=== PATIENT | female | born 1985 | race African-American/Black ===

== ENCOUNTER 2017-12-25 12:43 | Inpatient (IN) | payer OTHER ==
[~2017-12-25] VITALS: Ht 142.2 cm; Wt 70.8 kg
[2017-12-25] VITALS (20 sets, daily range): BP systolic 124–156; BP diastolic 80–111
--- NOTE | ~2017-12-25 | HC ---
[facility] [place] [address] CONSULTATION Name: SHIRLENE CORRIGAN Room #: 240-P ADM IN M.R.#: [id number] Admission: 12/25/17 Attend Phys: Nakul Hernandez MD Discharge: Date of : 89 Report #: [id number] THIS REPORT FOR: //name// CC: Nakul John REFERRING PHYSICIAN: Dr. Hernandez. REASON FOR REFERRAL: Pneumonia. HISTORY OF PRESENT ILLNESS: The patient is a 32-year-old female who was transferred to the [facility] from [place] for [id number] respiratory failure and pneumonia. A pulmonary consultation is requested. The patient has severe cerebral palsy and has a chronic tracheostomy. She is not on a ventilator chronically. She is on trach shield. She was last hospitalized in 09/2017. The patient has known severe cerebral palsy with upper airway obstruction. As a result, she had a chronic tracheostomy tube placed in 2011. She has done fairly well up until recently. On the day of admission, the patient was noted to be more hypoxic, short of breath, low saturation was said to be in 60% noted by the caregiver. She was then taken by ambulance to [facility]. Chest x-ray revealed increasing infiltrates. She was transferred to [facility]. The patient is nonverbal. PAST MEDICAL HISTORY: As mentioned above, severe cerebral palsy, chronic respiratory failure due to upper airway obstruction, status post chronic tracheostomy, chronic dysphagia, status post PEG tube placement, history of multiple infections including MRSA, Stenotrophomonas respiratory tract infection, history of seizure disorder, asthma, history of meningitis. 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 MEDICATIONS: From her senior care include doxycycline, prednisone, clorazepate, valproic acid, Cardizem, Flonase, insulin supplements, Lasix, nebulized budesonide 0.5 mg b.i.d., Colace, Depo-Provera, glucagon, nystatin, nebulized Perforomist 20 mcg b.i.d., ____, prednisone 5 mg once a day, lansoprazole, Prevacid, guaifenesin, Xopenex nebulized q. 4 hours. FAMILY HISTORY: Noncontributory. SOCIAL HISTORY: She lives in a senior care with her adoptive parents. She has a [address] [place] [address] CONSULTATION Name: SHIRLENE CORRIGAN Room #: 240-[facility] IN ..#: [id number] Admission: 12/25/17 Attend Phys: Nakul Hernandez MD Discharge: Date of : 89 Report #: [id number] sister with similar problems. MEDICAL DIRECTIVE: She is a full code blue. REVIEW OF SYSTEMS: Deferred as the patient is unable to communicate. PHYSICAL EXAMINATION: GENERAL: She is awake, appears to be mildly dyspneic. VITAL SIGNS: Temperature is 98 degrees Fahrenheit, pulse is 120, respiratory rate is 20, blood pressure 135/89 mmHg, saturation 98%. HEENT: Normocephalic, atraumatic. NECK: Status post tracheostomy. CHEST: Breath sounds are decreased due to poor effort. Coarse breath sounds bilaterally with rales. No wheezes. CARDIOVASCULAR: Heart sounds are distant. No obvious murmurs or gallop. Pulses are 2+/4+ bilaterally. BREASTS: Exam deferred. ABDOMEN: Soft. No obvious masses felt. PEG tube is noted in the upper abdominal area. GENITOURINARY: Deferred. RECTAL: Deferred. EXTREMITIES: No cyanosis or clubbing. MUSCULOSKELETAL: She is in a position with marked muscle atrophy. LABORATORY DATA: Portable chest x-ray shows rotated film, infiltrate in the left side, mild infiltrate in the right lung field. Tracheostomy is noted in the midline. Cardiomegaly is present. Electrolytes: Sodium 141, potassium 3.3, chloride 100, CO2 is 32, BUN is 7, creatinine 0.3. WBC 18,000, hemoglobin 15.7, platelets are normal. Arterial blood gas revealed pH 7.37, pCO2 of 47, pO2 of 69 with FiO2 of 50%. IMPRESSION: 1. Snubs-bl-yuzpprq hypercapnic hypoxic respiratory failure in this 32-year-old white female with severe cerebral palsy, history of upper airway obstruction, status post chronic tracheostomy. Chest x-ray shows increasing infiltrates. Pneumonia is suspected, aspiration is likely. 2. Severe cerebral palsy, progressive weakness and debility. 3. History of upper airway obstruction, status post tracheostomy. 4. History of seizure disorder. 5. History of asthma, on chronic steroids and bronchodilators along with inhaled corticosteroids. 6. Remote history of meningitis. RECOMMENDATIONS: Agree with broad spectrum antibiotics to cover for community-acquired pneumonia as the patient lives in a senior care. Her last [facility] [address] [address] CONSULTATION Name: SHIRLENE CORRIGAN Room #: [facility] IN M.R.#: [id number] Admission: 12/25/17 Attend Phys: Nakul Hernandez MD Discharge: Date of : 89 Report #: [id number] hospitalization was in September of this year. Cultures will be obtained. In terms of the patient's respiratory status, given his severe cerebral palsy, progressive weakness, I would recommend mechanical ventilation to allow her to rest during this infectious period. In the near future, the patient may also benefit from either nocturnal ventilation or 24-hour positive pressure ventilation as her muscular weakness would only progress with time. Because of neurologic condition, she is at risk for recurrent respiratory complications. She has done fairly well up to this past year, her last hospitalization being September of this year. However, with recurrent hospitalization within the past few months, the patient may not be able to maintain adequate pulmonary hygiene. With severe cerebral palsy, overall look appears to be poor. Thank you for this consultation. <ELECTRONICALLY SIGNED> By: Juan Tobias MD 12/27/17 1715 1615 [id number] Juan Tobias MD /nt
--- NOTE | ~2017-12-25 | O ---
[facility] [place] [address] OPERATIVE REPORT Name: SHIRLENE CORRIGAN Room #: 240-P [facility] IN M.R.#: [id number] Admission: 12/25/17 Attend Phys: Nakul Hernandez MD Discharge: Date of : 89 Report #: [id number] THIS REPORT FOR: //name// CC: Nakul John PROCEDURE: THERAPEUTIC bronchoscopy. CLINICAL HISTORY: A 32-year-old female with severe cerebral palsy, now with pneumonia, increased secretion and possible mucus plugging. A diagnostic bronchoscopy was performed. POSTOPERATIVE DIAGNOSES: 1. Moderate mucosal edema. 2. No evidence of mucus plugging. DESCRIPTION OF PROCEDURE: Following obtained consent from the patient's family with risks and benefits being explained to the patient's family including infection, bleeding, pneumothorax, the procedure was performed in the ICU room. A flexible fiberoptic bronchoscope was then introduced through the previously placed tracheostomy. Distal trachea was grossly unremarkable other than moderate mucosal edema that was noted throughout both the airways. Otherwise, the dontae was unremarkable. Left main stem bronchus, left upper lobe and left lower lobe was grossly unremarkable other than the mucosal edema. Right mainstem bronchus, right upper lobe, right middle lobe and right lower lobe was also notable for moderate mucosal edema. The airways were patent without any evidence of mucus plugging. The patient tolerated the procedure well, no complications. Vital signs and saturation throughout the study were within normal range. We did a bronchial wash. The bronchial wash specimen will be sent for microbiologic studies. By: 1639 [id number] Juan Tobias MD /ashish
[~2017-12-25 12:43] MED LIST: ACETAMINOP160 MG/12 PER TUBE; ACETAMINOP160 MG/5 M PER TUBE; ALBUTEROL 0.5ML INH; AMOXICILLIN 50500 MG PO; ATIVAN1 MG PER TUBE; BACTRIM DS TAB1 EACH PO; CALAN PER TUBE; CARDIZEM60 MG PER TUBE; CHILDREN'S325 MG/10. PER TUBE; CIPRO250 M1 PER TUBE; CIPRO250 MG/51 PER TUBE; CLORAZEPATE DI7.5 M3 PER TUBE; COLACE100 MG PO; CONSTULOSE10 GM/152 PER TUBE; DEPAKENE PER TUBE; DEPO-PROVE150 MG/11 IM; DEPO-PROVER150 MG/M1 IM; DIMETAPP COLD PER TUBE; DOCUSATE S50 MG/5 M2 PER TUBE; DOXYCYCLINE HYC50 MG PO; ENOXAPARIN40 MG/0.1 SUBQ; EPIPEN0.3 MG/0.3 SUBQ; FENTANYL 0.50 MCG/ML IV PUSH; FLONASE 0.05%50 MCG NASAL; GLUCAGON EMERGEN1 MG SUBQ; GLUTOSE GEL 1515 G1 PO; GUAIATUSSI100 MG/5 M PER TUBE; HEPARIN LO IV; HYDROCORTISONE IV PUSH; KLOR-CON 1010 MEQ PO; LACTULOSE10 GM/152 PER TUBE; LANTUS SUBQ; LASIX 20 MG TAB20 MG PO; LEVALBUTER1.25 MG/0. INH; MIRALAX17 GM PO; MUPIROCIN22 GM TOP; NEOSPORIN OINTM15 GM; NEOSPORIN OINTM15 GM TOP; NOVOLOG100 UNIT/1 SUBQ; NYAMYC15 GM TOP; PERFOROMIS20 MCG/2 M INH; PERFOROMIST; PERFOROMIST INH; PIPERACIL-TA3.375 G1 IV; POTASSIUM PER TUBE; PREDNISOLON5 MG/5 ML PER TUBE; PREDNISONE 10 M10 MG PO; PREDNISONE 5 MG5 M1 PO; PREVACID 15 MG15 M4 PER TUBE; PREVACID15 MG PER TUBE; PREVACID15 MG PO; PROGESTERO50 MG/1 M4 IM; PROTONIX40 M1 PER TUBE; PULMICORT0.5 MG/21 INH; PULMICORT0.5 MG/22 INH; ROBAFEN100 MG/5 M PER TUBE; SEPTRA SUSPENS100 ML PER TUBE; TEGRETOL100 MG/5 M PER TUBE; TOBI 300 M300 MG/5 M; TRANXENE PER TUBE; VALPROIC A250 MG/51 PER TUBE; VERAPAMIL HCL120 MG PER TUBE; VESICARE10 M1 PER TUBE; XOPENEX0.63 MG/3 INH; ZYVOX PER TUBE; [UNRECOGNIZED DRUG - OTHER]; [UNRECOGNIZED DRUG - OTHER] PER TUBE; colace PER TUBE; depo shot IM
[2017-12-25 14:57] LABS: HEMATOCRIT 46.7 % (37.0-47.0); HEMOGLOBIN 15.7 gm/dL (12.0-15.0); MCH 32.2 pg (26.0-34.0); MCHC 33.7 g/dL (28.0-37.0); MCV 95.5 fL (80.0-100.0); PLATELET COUNT 192 thou/uL (150-400); RBC 4.89 mil/uL (4.20-5.00); RDW 13.8 % (10.5-14.5); WBC 18.2 thou/uL (4.0-11.0)
[2017-12-25 15:04] LABS: CALCIUM 9.2 mg/dL (8.5-10.1); CREATININE 0.4 mg/dL (0.6-1.0); POTASSIUM 3.3 mmol/L (3.5-5.1)
[2017-12-25 15:10] LABS: BE(vivo) 1.5 mmol/L (-2 to +3); HCO3 27.5 mmol/L (22.0-26.0); PCO2 47.8 mmHg (35.0-45.0); PO2 69.5 mmHg (80.0-100.0); pH 7.377 (7.360-7.450); sO2 93.5 % (92.0-98.0)
[2017-12-25] MEDS ORDERED: G TUSSIN AC LI473 ML PER TUBE (15:11)
[2017-12-25] MEDS ORDERED: POTASSIUM40 MEQ/11 PER TUBE (15:14)
[2017-12-25] MEDS ORDERED: KEPPRA 100100 MG/M1 PO (15:15)
[2017-12-25] MEDS ORDERED: NOVOLIN R100 UNIT/1 SUBQ (15:16)
[2017-12-25] MEDS ORDERED: CORTISONE60 GM (15:17)
[2017-12-25] MEDS ORDERED: ACETAMINOP160 MG/5 M (15:19)
[2017-12-25] MEDS ORDERED: MILK OF MA2400 MG/10 (15:20)
[2017-12-25] MEDS ORDERED: EPIPEN0.3 MG/0.1 INJECTION (15:21)
[2017-12-25 15:23] LABS: ABSOLUTE NEUTROPHILS 13.3 thou/uL (1.4-8.2); METAMYELOCYTES 2 %
[2017-12-26] VITALS (26 sets, daily range): BP systolic 105–158; BP diastolic 53–106
[2017-12-26 06:14] LABS: ABSOLUTE NEUTROPHILS 10.3 thou/uL (1.4-8.2); BASOPHILS 0.6 % (0.0-2.0); EOSINOPHILS 0.4 % (0.0-3.0); HEMATOCRIT 41.5 % (37.0-47.0); LYMPHOCYTES 15.6 % (24.0-44.0); MCH 32.3 pg (26.0-34.0); MCHC 33.7 g/dL (28.0-37.0); MCV 95.8 fL (80.0-100.0); MONOCYTES 10.9 % (1.0-8.0); PLATELET COUNT 177 thou/uL (150-400); POLYS 72.5 % (36.0-66.0); RBC 4.33 mil/uL (4.20-5.00); RDW 13.9 % (10.5-14.5); WBC 14.2 thou/uL (4.0-11.0)
[2017-12-26 06:32] LABS: CALCIUM 9.2 mg/dL (8.5-10.1); CREATININE 0.3 mg/dL (0.6-1.0)
[2017-12-26 06:33] LABS: POTASSIUM 2.9 mmol/L (3.5-5.1)
[2017-12-26 13:36] LABS: POTASSIUM 3.8 mmol/L (3.5-5.1)
[2017-12-27] VITALS (26 sets, daily range): BP systolic 106–164; BP diastolic 63–108
[2017-12-27 06:00] LABS: CALCIUM 9.1 mg/dL (8.5-10.1); CREATININE 0.4 mg/dL (0.6-1.0); POTASSIUM 3.1 mmol/L (3.5-5.1)
[2017-12-28] VITALS (24 sets, daily range): BP systolic 100–173; BP diastolic 47–111
[2017-12-28 05:39] LABS: HEMATOCRIT 37.8 % (37.0-47.0); HEMOGLOBIN 12.9 gm/dL (12.0-15.0); MCH 32.3 pg (26.0-34.0); MCV 94.8 fL (80.0-100.0); RBC 3.99 mil/uL (4.20-5.00); RDW 13.7 % (10.5-14.5); WBC 7.4 thou/uL (4.0-11.0)
[2017-12-28 06:02] LABS: CALCIUM 8.8 mg/dL (8.5-10.1); CREATININE 0.3 mg/dL (0.6-1.0); POTASSIUM 3.3 mmol/L (3.5-5.1)
[2017-12-29] VITALS (23 sets, daily range): BP systolic 106–149; BP diastolic 53–91
[2017-12-30] VITALS (22 sets, daily range): BP systolic 110–172; BP diastolic 64–124
[2017-12-31] VITALS (14 sets, daily range): BP systolic 101–159; BP diastolic 59–102
[2018-01-01] VITALS (7 sets, daily range): BP systolic 145–175; BP diastolic 91–112
[2018-01-01] MEDS ORDERED: LANTUS100 UNIT/M SUBQ (13:05)
== END 2018-01-01 17:25 | disposition home health service (06) | DRG 207 ==
LOC: ICU 12:43
PROVIDERS: Hospitalist; Internal Medicine; Internal Medicine Pulmonary Disease
PROC: 5A1955Z Respiratory Ventilation, Greater than 96 Consecutive Hours (ICD-10-PCS; principal; 2017-12-25)
PROC: 0BJ08ZZ Inspection of Tracheobronchial Tree, Via Natural or Artificial Opening Endoscopic (ICD-10-PCS; 2017-12-27)
DX: J69.0 Pneumonitis due to inhalation of food and vomit (principal); J96.21 Acute and chronic respiratory failure with hypoxia; J96.22 Acute and chronic respiratory failure with hypercapnia; J98.11 Atelectasis; G40.909 Epilepsy, unspecified, not intractable, without status epilepticus; I10 Essential (primary) hypertension; K21.9 Gastro-esophageal reflux disease without esophagitis; R13.10 Dysphagia, unspecified; G80.9 Cerebral palsy, unspecified; J45.909 Unspecified asthma, uncomplicated; Z93.0 Tracheostomy status; Z86.61 Personal history of infections of the central nervous system; Z93.1 Gastrostomy status; Z99.81 Dependence on supplemental oxygen; Z79.4 Long term (current) use of insulin; Z79.52 Long term (current) use of systemic steroids; Z79.899 Other long term (current) drug therapy; Z88.1 Allergy status to other antibiotic agents; Z88.8 Allergy status to other drugs, medicaments and biological substances
CPT/HCPCS: 10078